=== PATIENT | male | born 1970 | race Two or more races ===

== ENCOUNTER 2019-05-06 02:44 | Emergency (ER) | payer OTHER ==
[2019-05-06 02:52] VITALS: BMI 25.0
--- NOTE | 2019-05-06 02:53 | PDOC ---
History of Present Illness - General Chief Complaint: Pain, Acute Stated Complaint: KIDNEY PROBLEM Time Seen by Provider: 05/06/19 02:52 Past History - Past Medical History Allergies/Adverse Reactions: Allergies Allergy/AdvReac Type Severity Reaction Status Date / Time No Known Allergies Allergy Verified 05/06/19 02:48 Home Medications: Ambulatory Orders NK [No Known Home Medication] 05/06/19 COPD: No Kidney Stones: Yes - Psycho Social/Smoking Cessation Hx Smoking History: Unknown if ever smoked *Physical Exam - Vital Signs Last Vital Signs Temp Pulse Resp BP Pulse Ox 97.5 F L 67 18 111/71 05/06/19 02:49 05/06/19 02:49 05/06/19 02:49 05/06/19 02:49 ED Treatment Course - LABORATORY CBC & Chemistry Diagram: 05/06/19 03:25 05/06/19 03:25 Medical Decision Making - Medical Decision Making HPI: 48yo M with PMH of kidney infection and hernia presenting with abdominal pain. The pain is located in his right inguinal area and radiates down his groin and down his left leg. It is rated 8/10 and described as squeezing. Patient has taken tylenol at home with no relief of pain. Reporting nausea and nonbloody bilious vomiting one day ago, but no nausea currently. History of abdominal surgeries include hernia repair about ten years ago. Had a kidney infection about two or three years ago. Had an episode of black diarrhea yesterday without blood. Denies urinary symptoms. Stool yesterday was black diarrhea without blood. Has not seen a physician in three years. No fevers, but endorses chills. ROS: Constitutional: no fever, +chills HEENT: no throat pain, no dysphagia Cardiovascular: no chest pain, no palpitations Respiratory: no cough, no shortness of breath Gastrointestinal: +abdominal pain, +nausea Genitourinary: no dysuria, no hematuria Musculoskeletal: no myalgia, no arthralgia Skin: no rash, no itching Neurologic: no headache, no weakness PE: General: Awake, alert, and fully oriented, in no acute distress Head: No signs of trauma Eyes: EOMI, sclera anicteric ENT: Moist mucus membranes Neck: Normal ROM, supple Lungs: Lungs clear, Normal breath sounds Cardio: Regular rhythm, S1 and S2 present Abdomen: Soft, nondistended. No guarding, no rebound. Left inguinal area is tender to palpation. Extremities: Normal range of motion, Distal pulses present SKIN: Warm, Dry, normal turgor Neurologic: Cranial nerves II through XII grossly intact. Normal speech Rectal: The skin is without erythema or induration. No external hemorrhoids, fissures, skin tags, warts, or discharge. Sphincter tone normal. There are no masses palpated on digital exam. ED Course/MDM: DDX including but not limited to UTI, pyelonephritis, incarcerated inguinal hernia, nephrolithiasis Morphine Zofran Fluids Labs 05/06/19 02:52 CBC WBC 7.1 K/mm3 (4.0-10.0) 05/06/19 03:25 RBC 3.95 M/mm3 (4.00-5.60) L 05/06/19 03:25 Hgb 12.7 GM/dL (11.7-16.9) 05/06/19 03:25 Hct 37.3 % (35.4-49) 05/06/19 03:25 MCV 94.5 fl (80-96) 05/06/19 03:25 MCH 32.2 pg (25.7-33.7) 05/06/19 03:25 MCHC 34.1 g/dl (32.0-35.9) 05/06/19 03:25 RDW 12.9 % (11.9-15.9) 05/06/19 03:25 Plt Count 175 K/MM3 (134-434) 05/06/19 03:25 MPV 9.0 fl (7.5-11.1) 05/06/19 03:25 Absolute Neuts (auto) 2.8 K/mm3 (1.5-8.0) 05/06/19 03:25 Neutrophils % 40.2 % (42.8-82.8) L 05/06/19 03:25 Lymphocytes % 44.7 % (8-40) H 05/06/19 03:25 Monocytes % 11.4 % (3.8-10.2) H 05/06/19 03:25 Eosinophils % 2.6 % (0-4.5) 05/06/19 03:25 Basophils % 1.1 % (0-2.0) 05/06/19 03:25 Nucleated RBC % 0 % (0-0) 05/06/19 03:25 No leukocytosis CMP Sodium 141 mmol/L (136-145) 05/06/19 03:25 Potassium 3.6 mmol/L (3.5-5.1) 05/06/19 03:25 Chloride 105 mmol/L (98-107) 05/06/19 03:25 Carbon Dioxide 30 mmol/L (21-32) 05/06/19 03:25 Anion Gap 6 MMOL/L (8-16) L 05/06/19 03:25 BUN 16.4 mg/dL (7-18) 05/06/19 03:25 Creatinine 1.3 mg/dL (0.55-1.3) 05/06/19 03:25 Est GFR (CKD-EPI)AfAm 73.74 05/06/19 03:25 Est GFR (CKD-EPI)NonAf 63.62 05/06/19 03:25 Random Glucose 79 mg/dL (74-106) 05/06/19 03:25 Calcium 8.3 mg/dL (8.5-10.1) L 05/06/19 03:25 Total Bilirubin 0.3 mg/dL (0.2-1) 05/06/19 03:25 AST 16 U/L (15-37) 05/06/19 03:25 ALT 14 U/L (13-61) 05/06/19 03:25 Alkaline Phosphatase 65 U/L (45-117) 05/06/19 03:25 Total Protein 5.9 g/dl (6.4-8.2) L 05/06/19 03:25 Albumin 3.5 g/dl (3.4-5.0) 05/06/19 03:25 Electrolytes unremarkable Normal Cr No transaminitis UA negative for blood or infection Pending CTAP report 05/06/19 05:09 CTAP as read by imaging push connector assembler: "FINDINGS: Lung bases are clear. The visualized cardiac chambers are normal size and configuration. Gallbladder is collapsed and removed. No biliary duct dilation. Normal liver, gallbladder, pancreas, spleen, adrenal glands and kidneys. The stomach and small bowel bowel are normal. There is diffuse liquid stool without colonic wall thickening, suggesting a diarrheal illness. There is no aortic aneurysm. There is no significant retroperitoneal lymphadenopathy. The appendix is normal. The urinary bladder is mildly inflamed, indicating cystitis. No bladder stones. The prostate gland is normal. No pelvic free fluid is identified. There is no significant pelvic lymphadenopathy. IMPRESSION: Mild cystitis, can be correlated with urinalysis. Possible diarrheal illness without colonic wall thickening." 05/06/19 05:30 No acute pathology seen on CT Patient likely has sciatica sustained from straining while vomiting Pain is adequately alleviated Referral given for primary care as patient does not follow with a provider Discharged with return precautions Discharge - Discharge Information Problems reviewed: Yes Clinical Impression/Diagnosis: Pain aggravated by activities of daily living Sciatica Qualifiers: Laterality: left Qualified Code(s): M54.32 - Sciatica, left side Diarrhea Qualifiers: Diarrhea type: unspecified type Qualified Code(s): R19.7 - Diarrhea, unspecified Disposition: HOME - Follow up/Referral Referrals: [facility] [place] [facility] [Provider Group] Heide Dowd [Primary Care Provider] - Randy Le MD [Staff Physician] - - Patient Discharge Instructions Patient Printed Discharge Instructions: Diarrhea, DI for Sciatica Additional Instructions: You came into the emergency department for abdominal pain. Labs did not indicate acute pathology. CT scan did not indicate acute pathology but it did show evidence of bladder inflammation. We have referred you to a urologist for the bladder inflammation. Your workup is not complete until you do so. Call and make an appointment at the number provided. Make sure you drink plenty of water to keep well hydrated. You can take [id number] tylenol or motrin as needed for pain. Follow the instructions on the medication bottle. Follow-up with a primary care provider within 72 hours to discuss this ED visit and to further evaluate your symptoms. Your workup is not complete until you do so. You have been referred to the [facility] in case you do not have a primary care doctor. Call and make an appointment at the number provided. Immediate medical attention is required if you develop: worsening pain, high fevers, persistent nausea, vomiting, or any new or concerning symptoms. If you think you are having an emergency, call for emergency medical services or present to the emergency department right away. === - Post Discharge Activity Work/Back to School Note: Back to Work
--- NOTE | 2019-05-06 02:56 | PDOC ---
Attending Attestation - Resident Resident Name: Nella Whitt - ED Attending Attestation I have performed the following: I have examined & evaluated the patient, The case was reviewed & discussed with the resident, I agree w/resident's findings & plan - HPI HPI: 05/06/19 19:47 see resident hpi - Physicial Exam PE: 05/06/19 19:47 agree with resident exam - Medical Decision Making 05/06/19 19:47 48-year-old male with an episode of diarrhea and vomiting x1 On exam there is tenderness along the left lumbar paravertebral musculature with sciatic pattern pain distribution Patient given morphine and Toradol as well as Decadron in the emergency department with some improvement CT scan showed no acute pathology Patient will be discharged home with recommended primary care follow-up 05/06/19 19:49
[2019-05-06] MEDS ORDERED: morphine CARPU-JECT 4 MG/1 ML DISP.SYRIN IVPUSH ONE (03:22)
[2019-05-06] MEDS ORDERED: SODIUM CHLORIDE 1,000 ML IV STA (03:22)
[2019-05-06] MEDS ORDERED: ONDANSETRON 4 MG/2 ML VIAL IVPUSH ONE (03:22)
[2019-05-06] MEDS ORDERED: morphine SULFATE 4 MG/ML VIAL ONE (03:37)
[2019-05-06] MEDS ORDERED: ONDANSETRON 4 MG/2 ML VIAL ONE (03:38)
[2019-05-06 03:42] LABS: URINE APPEARANCE CLEAR; URINE BILIRUBIN NEGATIVE (NEGATIVE); URINE COLOR YELLOW; URINE GLUCOSE (UA) NEGATIVE (NEGATIVE); URINE KETONE NEGATIVE (NEGATIVE); URINE LEUK ESTERASE NEGATIVE (NEGATIVE); URINE NITRITE NEGATIVE (NEGATIVE); URINE PROTEIN NEGATIVE (NEGATIVE); URINE UROBILINOGEN 0.2 mg/dL (0.2-1.0)
[2019-05-06 03:44] LABS: BASO % 1.1 % (0-2.0); EOS % 2.6 % (0-4.5); HEMATOCRIT 37.3 % (35.4-49); HEMOGLOBIN 12.7 GM/dL (11.7-16.9); LYMPH % 44.7 % (8-40); MCH 32.2 pg (25.7-33.7); MCHC 34.1 g/dl (32.0-35.9); MEAN CELL VOLUME 94.5 fl (80-96); MONO % 11.4 % (3.8-10.2); NEUT % 40.2 % (42.8-82.8); PLATELET COUNT 175 K/MM3 (134-434); RBC 3.95 M/mm3 (4.00-5.60); RDW 12.9 % (11.9-15.9); WHITE BLOOD COUNT 7.1 K/mm3 (4.0-10.0)
[2019-05-06 04:04] LABS: ALBUMIN 3.5 g/dl (3.4-5.0); BILIRUBIN,TOTAL 0.3 mg/dL (0.2-1); BLOOD UREA NITROGEN 16.4 mg/dL (7-18); CALCIUM 8.3 mg/dL (8.5-10.1); CREATININE 1.3 mg/dL (0.55-1.3); POTASSIUM 3.6 mmol/L (3.5-5.1); TOT PROT 5.9 g/dl (6.4-8.2)
[2019-05-06] MEDS ORDERED: KETOROLAC TROMETHAMINE 30 MG/1 ML VIAL IVPUSH ONE (05:36)
[2019-05-06] MEDS ORDERED: DEXAMETHASONE SOD PHOSPHATE 20 MG/5 ML VIAL IVPB ONE (05:38)
[2019-05-06] MEDS ORDERED: DEXAMETHASONE SOD PHOSPHATE 10 MG/1 ML VIAL ONE (05:40)
[2019-05-06] MEDS ORDERED: KETOROLAC TROMETHAMINE 30 MG/1 ML VIAL ONE (05:41)
[2019-05-06 05:48] VITALS: TEMP 98
[2019-05-06 06:23] VITALS: BP 116/62; PULSE 50
== END 2019-05-06 06:48 | disposition home or self-care (01) ==
LOC: JER 02:44
PROC: 3E0333Z Introduction of Anti-inflammatory into Peripheral Vein, Percutaneous Approach (ICD-10-PCS; principal; 2019-05-06)
PROC: 3E033NZ Introduction of Analgesics, Hypnotics, Sedatives into Peripheral Vein, Percutaneous Approach (ICD-10-PCS; 2019-05-06)
PROC: 3E0337Z Introduction of Electrolytic and Water Balance Substance into Peripheral Vein, Percutaneous Approach (ICD-10-PCS; 2019-05-06)
PROC: 3E033GC Introduction of Other Therapeutic Substance into Peripheral Vein, Percutaneous Approach (ICD-10-PCS; 2019-05-06)
DX: N30.90 Cystitis, unspecified without hematuria (principal)
CPT/HCPCS: 36415; 74176-TC; 80053; 81003; 82272; 85025; 87086; 96361; 96374; 96375; 99282-25; J7030

== ENCOUNTER 2023-03-16 00:32 | Emergency (ER) | payer OTHER ==
[2023-03-16 00:53] VITALS: BMI 25.1
[2023-03-16] MEDS ORDERED: ACETAMINOPHEN 1000 MG/100 ML BAG IVPB ONE (01:36)
[2023-03-16] MEDS ORDERED: LACTATED RINGERS SOLUTION 1000 ML INFUS.BAG IV ONE (01:38)
[2023-03-16] MEDS ORDERED: ACETAMINOPHEN INJECTION 100 ML IVPB ONE (01:43)
[2023-03-16 02:06] LABS: BASO % 0.8 % (0-2.0); EOS % 1.2 % (0-4.5); HEMATOCRIT 39.4 % (35.4-49); LYMPH % 18.9 % (8-40); MCH 32.4 pg (25.7-33.7); MCHC 35.5 g/dl (32.0-35.9); MEAN CELL VOLUME 91.2 fl (80-96); MONO % 9.8 % (3.8-10.2); NEUT % 69.3 % (42.8-82.8); PLATELET COUNT 170 10^3/uL (134-434); RBC 4.32 M/mm3 (4.00-5.60); RDW 12.8 % (11.9-15.9); WHITE BLOOD COUNT 8.9 K/mm3 (4.0-10.0)
[2023-03-16 02:38] LABS: POTASSIUM 3.8 mmol/L (3.5-5.1)
[2023-03-16 02:41] LABS: ALBUMIN 3.5 g/dl (3.4-5.0); BLOOD UREA NITROGEN 19.1 mg/dL (7-18); CALCIUM 8.5 mg/dL (8.5-10.1)
[2023-03-16 02:44] LABS: CREATININE 1.1 mg/dL (0.55-1.3)
[2023-03-16 02:46] LABS: BILIRUBIN,TOTAL 0.4 mg/dL (0.2-1); TOT PROT 6.5 g/dl (6.4-8.2)
[2023-03-16] MEDS: LOPERAMIDE HCL 2 MG CAPSULE PO ONE ×2 (03:00→03:16)
[2023-03-16] MEDS ORDERED: LOPERAMIDE HCL 2 MG CAPSULE ONE (03:16)
[2023-03-16 03:28] LABS: URINE APPEARANCE CLEAR; URINE BILIRUBIN NEGATIVE (NEGATIVE); URINE COLOR YELLOW; URINE GLUCOSE (UA) NEGATIVE (NEGATIVE); URINE KETONE NEGATIVE (NEGATIVE); URINE LEUK ESTERASE NEGATIVE (NEGATIVE); URINE NITRITE NEGATIVE (NEGATIVE); URINE PROTEIN NEGATIVE (NEGATIVE); URINE UROBILINOGEN 0.2 mg/dL (0.2-1.0)
[2023-03-16] MEDS ORDERED: FAMOTIDINE 20 MG/50 ML IVPB 20 MG/50 ML MG IVPB ONE (06:26)
[2023-03-16 06:49] VITALS: BP 104/68; PULSE 66; RESP 16; TEMP 98.2
== END 2023-03-16 07:00 | disposition home or self-care (01) ==
LOC: JER 00:32
PROC: 3E033GC Introduction of Other Therapeutic Substance into Peripheral Vein, Percutaneous Approach (ICD-10-PCS; principal; 2023-03-16)
PROC: 3E033GC Introduction of Other Therapeutic Substance into Peripheral Vein, Percutaneous Approach (ICD-10-PCS; 2023-03-16)
DX: R10.84 Generalized abdominal pain (principal); R55 Syncope and collapse; R11.2 Nausea with vomiting, unspecified; R53.1 Weakness
CPT/HCPCS: 36415; 71045-TC-FY; 80053; 81003; 83605; 83690; 84484; 85025; 87086; 93005; 93010; 99285-25